=== PATIENT | male | born 1970 | race Caucasian/White ===

== ENCOUNTER 2017-04-08 09:36 | Emergency (ER) | payer OTHER ==
[~2017-04-08] VITALS: Ht 177.8 cm; Wt 72.6 kg
[2017-04-08 09:40] VITALS: BP 131/86; PULSE 54; TEMP 36.9; O2SAT 97; Ht 177.8 cm; Wt 72.6 kg
--- NOTE | 2017-04-08 09:53 | EMERGENCY ROOM VISIT NOTE ---
ED Visit Note First contact with patient: 09:41 CHIEF COMPLAINT: Ankle pain HISTORY OF PRESENT ILLNESS: This 47-year-old male patient presents to the emergency department ambulatory after sustaining an injury to the right ankle and foot with a twisting, inversion motion when he was playing soccer over the weekend. Complains of moderate swelling and pain. The patient complains of pain along the outside of the ankle. The patient does not have pain of the foot. He does complain of pain over the Achilles. The patient rates the pain as mild, soreness and 2/10. There was no audible pop. The patient is able to bear weight on the foot. Constant pain, worse with movement, weight bearing, and the dependent position. No knee pain, the patient is able to move their toes. No numbness or weakness of the foot, no laceration. The patient has had a previous injury to this ankle, sprain and it has been bothering him for a few weeks. The patient has taken nothing for the pain. The patient denies any other injury. REVIEW OF SYSTEMS: A 6 system review of systems was completed with positives and pertinent negatives listed in the HPI. ALLERGIES: No known drug allergies MEDICATIONS: None PMH: None SOCIAL HISTORY: The patient lives locally PHYSICAL EXAM: Vital Signs: Reviewed Nurse's notes, vital signs stable. GENERAL : This is a 47-year-old male, no acute distress, but appears in pain, well- developed, well-nourished. MENTAL STATUS: Alert, oriented to person place and time, and cooperative. MUSCULOSKELETAL: The right ankle is swollen and tender over the lateral malleolus, but the skin is intact and there is no ligamentous instability. There is no fifth metatarsal tenderness. There is no tenderness over the rest of the foot. There is no calf or tibia/fibular tenderness. There is no visual deformity. There is mild tenderness to palpation over the Achilles. There is no deformity or step-off. The foot and toes are warm and well-perfused. Dorsalis pedis pulse 2+. Sensation to pain and light touch is intact. Capillary refill less than 2 seconds. EMERGENCY DEPARTMENT COURSE: I examined the patient. X-rays of the foot and ankle were reviewed by myself and read by radiology and reveal no fracture or dislocation. A gel splint was applied to the ankle under my direction and the position was satisfactory. Neurovascular status was rechecked and intact. The patient was instructed on the use of crutches. The patient was discharged home in good condition. R FOOT MIN 3 VIEWS ROUTINE, R ANKLE MIN 3 VIEWS ROUTINE HISTORY: 47 years-old Male right foot pain acute right foot and ankle pain status post injury COMPARISON: None available TECHNIQUE: 3 views of the right foot and 3 views of the right ankle FINDINGS: FOOT: Mild first metatarsophalangeal osteoarthritis. No acute fracture, dislocation or significant degenerative changes. No stress fracture. ANKLE: No osteochondral defect identified. There is mild circumferential soft tissue swelling about the ankle with small joint effusion. No acute fracture or dislocation. IMPRESSION: 1. Mild circumferential soft tissue swelling about the ankle with small joint effusion. No acute fracture or dislocation of the right foot or ankle. 2. Mild first metatarsophalangeal joint osteoarthritis. Medication Reconciliation: I attest that I have personally reviewed the patient' s current medication list. Blood pressure screening: The patient was found to have normal blood pressure on screening and does not require follow-up Current/Historical Medications No Active Prescriptions or Reported Meds Allergies Coded Allergies: No Known Allergies (Unverified , 04/08/17) Vital Signs Date Time Temp Pulse Resp B/P (MAP) Pulse Ox O2 Delivery O2 Flow Rate FiO2 04/08/17 09:40 36.9 54 18 131/86 97 Room Air Departure Information Impression Primary Impression: Ankle sprain Dispostion Home / Self-Care Condition GOOD Prescriptions No Active Prescriptions or Reported Meds Referrals Martina Chavez M.D. (PCP) Pierre Gomez D.O. Patient Instructions [facility] Sp[facility] Additional Instructions Ice and elevate ankle for swelling and pain. Crutches with weight bearing as tolerated. Wear the splint 7-14 days or until pain subsides. Ibuprofen 600 mg every 6 hrs for pain. Contact orthopedics tomorrow for a follow up appointment. You may need physical therapy. Problem Qualifiers Primary Impression: Ankle sprain Encounter type: initial encounter Laterality: right
--- NOTE | 2017-04-08 10:21 | DIAGNOSTIC IMAGING REPORT ---
R FOOT MIN 3 VIEWS ROUTINE, R ANKLE MIN 3 VIEWS ROUTINE HISTORY: 47 years-old Male right foot pain acute right foot and ankle pain status post injury COMPARISON: None available TECHNIQUE: 3 views of the right foot and 3 views of the right ankle FINDINGS: FOOT: Mild first metatarsophalangeal osteoarthritis. No acute fracture, dislocation or significant degenerative changes. No stress fracture. ANKLE: No osteochondral defect identified. There is mild circumferential soft tissue swelling about the ankle with small joint effusion. No acute fracture or dislocation. IMPRESSION: 1. Mild circumferential soft tissue swelling about the ankle with small joint effusion. No acute fracture or dislocation of the right foot or ankle. 2. Mild first metatarsophalangeal joint osteoarthritis. The above report was generated using voice recognition software. It may contain grammatical, syntax or spelling errors. Electronically signed by: Salas Monteiro M.D. 04/08/2017 10:20 AM Dictated Date/Time: 04/08/2017 10:18 AM
== END 2017-04-08 10:38 | disposition home or self-care (01) ==
LOC: C.EDB 09:37 → C.EDA 10:38
DX: S93.401A Sprain of unspecified ligament of right ankle, initial encounter (principal); X50.9XXA Other and unspecified overexertion or strenuous movements or postures, initial encounter

== ENCOUNTER 2020-11-23 06:01 | Observation (INO) ==
--- NOTE | 2020-11-15 14:21 | PAT Medication Instructions ---
Medication Instructions Date of Service November 15, 2020 Home Medications ciclopirox 1 appln TOP QAM tamsulosin [Flomax] 0.4 mg PO HS tretinoin 1 applic TOP DIRECTED STOP taking 2 weeks before surgery ciclopirox 1 appln TOP QAM tretinoin 1 applic TOP DIRECTED Take evening before surgery tamsulosin [Flomax] 0.4 mg PO HS Other Notes If you have any questions please call us at [phone] or [phone] or [phone] or [phone]
--- NOTE | 2020-11-16 09:01 | Anesthesiology Consultation ---
Date of Service November 16, 2020 Assessment & Plan (1) Encounter for pre-operative examination: - COVID screening: Per assessment on 11/16: Travel screen negative, no known COVID-19 positive contacts or current COVID-19 related symptoms. Surgeon arranged preop COVID testing (pt states he will have done 11/19; [place]) Awaiting results. - S/P Colonoscopy (05/02/19): MAC sedation at [facility] Chart Review Chart Review: Acceptable Risk for Surgery and Patient seen in Pre Admission Testing Teaching & Discussion Pre-Anesthesia Teaching/Discussion Notes: Instructed NPO after midnight before surgery,except medications with 15 cc of water. Medication instructions provided according to the PAT guidelines. History Surgery Operation Date: 11/23/20 11:10 Proposed Procedures p Robotic Laparoscopic Bladder Diverticulectomy - Herminio Sullivan MD s Cystoscopy, Possible Bilateral Ureteral Stent Insertion - Herminio Sullivan MD Height/Weight Height: 5 ft 9.69 in Weight: 67.3 kg Allergies Allergy/AdvReac Type Severity Reaction Status Date / Time No Known Allergies Allergy Verified 11/15/20 11:32 Medications Home Medications Medication Instructions Recorded Confirmed Last Taken tretinoin 1 applic TOP DIRECTED 10/07/20 11/15/20 Unknown Past Medical History Medical History (Updated 11/16/20 @ 09:12 by Yolie Williamson) Bladder diverticulum Hypertension BP went too low on medical therapy > monitors closely at home with normal readings Urinary retention due to benign prostatic hyperplasia Exercise / Class Metabolic Activity II 4-5 Yardwork/Stairs/Walk up hill (one flight of stairs (no chest pain/no sob)) Past Family History Family History Father Colorectal cancer Other No family history of adverse response to anesthesia Past Surgical History Surgical History History of arthroscopy Right knee (30 years ago) History of arthroscopy of right knee History of colonoscopy Colonoscopy (05/02/19): MAC sedation at [facility] History of wisdom tooth extraction Past Anesthesia History No Hx of Anesthesia Complications and No Family Hx of Anesthesia Complications History of PONV No Hx of PONV and No Hx of Motion Sickness Social History Smoking Status: Never smoker Do You Dip or Chew Tobacco: No Hx Alcohol Use: No Hx Substance Use: No substance use type: does not use Review of Systems Patient denies chest pain, shortness of breath, dyspnea on exertion, joint pain, reflux, cough, wheezing, palpitations. Physical Exam Vital Signs VITALS BP 126/73 P 52 (chronic, typically in the 50's and asymptomatic per patient) TEMP 98.3 SP02 100%RA RESP 16 PHYSICAL Full cervical extension range of motion. Full TMJ range of motion. TMD 3 finger breaths Mallampati Score 3 Dentition: missing right lower side Lungs: clear throughout to auscultation Cardiac: regular rate and rhythm, no murmurs noted Spine: normal Carotid arteries: negative bruit Extremities: no edema Testing Laboratory Results 11/16/20 09:28 11/16/20 09:28 Urine Color Yellow 11/16/20 08:24 Urine Appearance Clear (Clear) 11/16/20 08:24 Urine pH 5.5 (4.5-7.5) 11/16/20 08:24 Ur Specific Larue 1.015 (1.000-1.030) 11/16/20 08:24 Urine Protein Negative (Negative) 11/16/20 08:24 Urine Glucose (UA) Negative (Negative) 11/16/20 08:24 Urine Ketones Negative (Negative) 11/16/20 08:24 Urine Nitrite Negative (Negative) 11/16/20 08:24 Ur Leukocyte Esterase Negative (Negative) 11/16/20 08:24 11/16/20 09:28 Urine Culture - Final Urine,Clean Catch No growth - less than 1,000 colonies/mL. 10/05/20 TSH 0.959 (wnl) Electrocardiogram Date: 11/16/20 Sinus bradycardia at 47 bpm. Minimal voltage criteria for LVH, may be normal variant. Chest X-Ray Date: 11/16/20 FINDINGS: PA and lateral chest radiographs are obtained. No prior studies are available for comparison at the time of dictation. The cardiomediastinal silhouette is unremarkable. The lungs and pleural spaces are clear. There is no pneumothorax. The bony thorax appears intact. IMPRESSION: No active disease in the chest.
--- NOTE | 2020-11-16 10:10 | XRay Report ---
TWO VIEW CHEST CLINICAL HISTORY: Preoperative examination. Reported history of hypertension and benign prostatic hyp erplasia. FINDINGS: PA and lateral chest radiographs are obtained. No prior studies are available for compariso n at the time of dictation. The cardiomediastinal silhouette is unremarkable. The lungs and pleural spaces are clear. There is no pneumothorax. The bony thorax appears intact. IMPRESSION: No active disease in the chest. ACT 112: Negative or not required by law. Electronically signed by: Aaron Metcalf M.D. 11/16/2020 10:08 AM
[2020-11-16 10:22] LABS: Appearance Urine Clear (Clear); Bilirubin Urine Negative (Negative); Blood Urine Negative (Negative); Color Urine Yellow; Glucose Urine UA Negative (Negative); Ketones Urine Negative (Negative); Leukocyte Esterase Urine Negative (Negative); Nitrite Urine Negative (Negative); Protein Urine Negative (Negative); Specific Gravity Urine 1.015 (1.000-1.030); Urobilinogen Urine Negative (Negative); pH Urine 5.5 (4.5-7.5)
[2020-11-16 10:24] LABS: Basophils # (auto) 0.03 K/uL (0-0.2); Basophils % (auto) 0.4 %; Eosinophils # (auto) 0.08 K/uL (0-0.5); Hematocrit (blood only) 39.8 % (42-52); Hemoglobin 13.6 g/dL (14.0-18.0); Immature Granulocytes # (auto) 0.01 K/uL (0.00-0.02); Immature Granulocytes % (auto) 0.1 %; Lymphocytes # (auto) 1.69 K/uL (1.2-3.4); Lymphocytes % (auto) 20.3 %; Mean Corpuscular Hemoglobin 29.6 pg (25-34); Mean Corpuscular Hgb Conc 34.2 g/dL (32-36); Mean Corpuscular Volume 86.5 fL (80-100); Mean Platelet Volume 10.1 fL (7.4-10.4); Monocytes # (auto) 0.48 K/uL (0.11-0.59); Monocytes % (auto) 5.8 %; Neutrophils # (auto) 6.02 K/uL (1.4-6.5); Neutrophils % (auto) 72.4 %; Platelet Count 282 K/uL (130-400); RDW Coefficient of Variation 13.1 % (11.5-14.5); RDW Standard Deviation 41.3 fL (36.4-46.3); White Blood Count 8.31 K/uL (4.8-10.8)
[2020-11-16 12:16] LABS: BUN Creatinine Ratio 14.6 (10-20); Calcium 9.4 mg/dl (8.5-10.1); Creatinine Clr Calc Pharmacy 85.8 ml/min; Est GFR (African American) 104.3; Potassium 4.3 mmol/L (3.5-5.1)
--- NOTE | 2020-11-17 06:36 | Electrocardiogram Report ---
Test Reason : Blood Pressure : / mmHG Vent. Rate : 047 BPM Atrial Rate : 047 BPM P-R Int : 142 ms QRS Dur : 090 ms QT Int : 410 ms P-R-T Axes : 067 068 070 degrees QTc Int : 362 ms Sinus bradycardia Minimal voltage criteria for LVH, may be normal variant Borderline ECG No previous ECGs available Confirmed by Magno Lamb ([id number]) on 11/17/2020 6:36:06 AM Referred By: Herminio Sullivan Confirmed By:Magno Lamb
[~2020-11-23 06:01] MED LIST: LR 15ML/HR IV SCH; cefTRIAXone SODIUM 1,000 MG in DEXTROSE 5% 50 ML IV SCH
[2020-11-23] MEDS ORDERED: BUPIVACAINE 0.5 % 5 MG/1 ML MPF 30ML VIAL ONE (07:05)
[2020-11-23] MEDS ORDERED: DEXAMETHASONE SOD INJ 4 MG/ML VIAL ONE (07:06)
[2020-11-23] MEDS ORDERED: ROCURONIUM BROMIDE 10 MG/ML 5 ML VIAL IV ONE (07:06)
[2020-11-23] MEDS ORDERED: NEOSTIGMINE METHYLSULFATE 1 MG/ML 10ML VIAL ONE (07:06)
[2020-11-23] MEDS ORDERED: ONDANSETRON INJ 2 MG/ML 2 ML VIAL ONE (07:06)
[2020-11-23] MEDS ORDERED: GLYCOPYRROLATE 0.2 MG/ML VIAL ONE (07:06)
[2020-11-23] MEDS ORDERED: LIDOCAINE 2% 2 ML VIAL/AMP(20MG/ML) INFIL ONE (07:06)
[2020-11-23] MEDS ORDERED: PROPOFOL IV EMULSION 10 MG/ML 20 ML VIAL IV ONE (07:06)
[2020-11-23] MEDS ORDERED: fentaNYL citrate 100 MCG/2 ML VIAL ONE (07:07)
[2020-11-23] MEDS ORDERED: MIDAZOLAM HCL 1 MG/ML 2ML VIAL ONE (07:07)
--- NOTE | 2020-11-23 07:13 | History & Physical Bridge Note ---
Date of Service November 23, 2020 History & Physical Bridge Note I have examined the patient, reviewed the History & Physical and in the interval since the performance of the History & Physical I have noted the following changes of clinical significance: no changes noted
[2020-11-23] MEDS ORDERED: BELLADONNA/OPIUM SUPP 60 MG SUPP PR ONE (07:51)
[2020-11-23] MEDS ORDERED: ATROPINE SULFATE 0.1 MG/ML 10ML SYR IV PRN (08:06)
[2020-11-23] MEDS ORDERED: fentaNYL citrate 100 MCG/2 ML VIAL IV PRN (08:06)
[2020-11-23] MEDS ORDERED: ePHEDrine sulfate 50 MG/ML AMP IV PRN (08:06)
[2020-11-23] MEDS ORDERED: ONDANSETRON INJ 2 MG/ML 2 ML VIAL IV PRN ×2 (08:06→11:31)
[2020-11-23] MEDS ORDERED: HYDROmorphone INJ 1 MG/ML SYRINGE IV PRN (08:06)
[2020-11-23] MEDS ORDERED: HYDROmorphone INJ 2 MG/ML SYR/VIAL ONE (09:28)
--- NOTE | 2020-11-23 10:15 | Operative Report ---
PG Post Operative Report Pre & Post Diagnosis Operation Date: 11/23/20 07:30 Pre-Op Diagnosis: Bladder Diverticulum, Urinary Retention Post-Op Diagnosis: Bladder Diverticulum, Urinary Retention I identified the patient and participated in the time-out.: Yes Procedure Operation Date: 11/23/20 07:30 Actual Procedures p Robotic Laparoscopic Bladder Diverticulectomy(Not Applicable) - Herminio Sullivan MD s Cystoscopy, Bilateral Ureteral Stent Insertion(Bilateral) - Herminio Sullivan MD Surgeon Avinash Sullivan MD [employer] Architect Elana Muniz Estimated Blood Loss 10 Findings Consistent with Post-Op Diagnosis Specimens bladder diverticulum Description of Procedure The patient was identified in the preoperative holding area, appropriate informed consents were reviewed and completed and the patient was transferred to the operative suite. Upon arrival, appropriate antibiotics and anesthesia were administered and the patient was placed in dorsal lithotomy position and prepped and draped in sterile fashion. To begin the case I passed a 22 Ivorian cystoscope with 30 degree lens. Inspection revealed a healthy-appearing urethra and a modest size prostate with a relatively high bladder neck. Upon entry into the bladder inspection reveals a heavily trabeculated bladder with a notable diverticulum connecting to the midportion of the posterior wall. Ureteral orifices were noted in orthotopic position several centimeters from the opening to the diverticulum. Following my inspection I cannulated the left UO with a 5 Ivorian open-ended catheter and advanced into the kidney without difficulty. I then withdrew the scope and reentered the bladder leaving the catheter in place. I then placed a catheter in wire up the right ureter leaving the catheter in place as well. I again withdrew the scope and reentered the bladder. I then coiled the wire into the diverticulum and placed a wales tip catheter over the wire guiding it into the diverticular space and inflating the balloon with 20 cc of sterile water. This concluded the cystoscopic portion of the case and I withdrew my equipment and turned my attention to the abdominal portion At that time I passed a Veress needle in her umbilicus and inflated the abdomen to 15 mmHg. A supraumbilical incision of 8 mm was made in the port and scope inserted utilizing a Visiport. Inspection revealed a traumatic injury and no evidence of adhesions or other scarring. I subsequently placed additional robotic ports and loan officer assistant ports in standard fashion that would typically be used for robotic prostatectomy. The patient was placed in steep Trendelenburg position and the robot was docked. His sigmoid colon was somewhat adherent to the left aspect of the pelvic sidewall and I carefully dissected this off the pelvic sidewall allowing me to empty the pouch of Jasen and expose the posterior wall of the bladder down to its junction with the prostate. I could easily identify a outpouching of bladder in this area consistent with a diverticulum based on preoperative imaging. Using the previously placed catheter we were able to manipulate the catheter and confirmed that this was in fact the diverticulum. I carefully incised the peritoneum overlying the aspect of the diverticulum and circumferentially began to dissect around the dive rticulum with care to avoid puncture. Fortunately, this was achieved relatively easily and the diverticulum in total was approximately 10 cm across but the junction with the bladder was quite smallapproximately 2 to 3 cm at most. As I neared the neck of the diverticulum, I open the diverticulum through its mucosal wall and inspected. I was able to then complete the dissection removing all mucosa and leaving only the cystotomy created naturally by the diverticulum. At that time I turned my attention to closure. First I collected the diverticulum into a specimen bag and passed into the upper abdomen, second I began to reapproximate the mucosal layer utilizing a 3 OV lock suture in running fashion. I then imbricated the muscle wall over this defect utilizing a 2 oh V- Loc suture. Hemostasis was excellent and the closure was quite tight in appearance. I then inflated the bladder with normal saline to 240 cc and saw no evidence of leak despite distention of the bladder around the area of closure. We then drained the bladder and left the catheter in place. Again hemostasis was excellent but I guided a drain in through the left medial loan officer assistant port and placed it in the area of the pouch of Jasen. The specimen bag was collected and withdrawn through the 12 mm port by withdrawing both the port and the bag simultaneously, there is no need to expand this incision. I closed the fascia in this incision with a 0 Vicryl [id number] suture. A second 0 Vicryl [id number] suture was placed through the midline 8 mm port fascia. Skin incisions were closed with 4-0 Monocryl and Dermabond. Drain was sutured in place with a 3-0 nylon. All incisions were infiltrated with half percent Marcaine. There were no complications. He tolerated the surgery extremely well and was extubated and taken to the PACU in stable condition. Elana Muniz assisted from incision to closure. I attest to the content of the Intraoperative Record and any orders documented therein. Any exceptions are noted below.
[2020-11-23 10:35] LABS: Basophils # (auto) 0.02 K/uL (0-0.2); Basophils % (auto) 0.2 %; Eosinophils # (auto) 0.02 K/uL (0-0.5); Eosinophils % (auto) 0.2 %; Hematocrit (blood only) 39.4 % (42-52); Hemoglobin 13.4 g/dL (14.0-18.0); Immature Granulocytes # (auto) 0.01 K/uL (0.00-0.02); Immature Granulocytes % (auto) 0.1 %; Lymphocytes # (auto) 1.02 K/uL (1.2-3.4); Lymphocytes % (auto) 9.2 %; Mean Corpuscular Hemoglobin 29.8 pg (25-34); Mean Corpuscular Volume 87.6 fL (80-100); Mean Platelet Volume 10.1 fL (7.4-10.4); Monocytes # (auto) 0.14 K/uL (0.11-0.59); Monocytes % (auto) 1.3 %; Neutrophils # (auto) 9.83 K/uL (1.4-6.5); Platelet Count 216 K/uL (130-400); RDW Coefficient of Variation 13.2 % (11.5-14.5); RDW Standard Deviation 42.4 fL (36.4-46.3); White Blood Count 11.04 K/uL (4.8-10.8)
[2020-11-23 10:57] LABS: Calcium 8.8 mg/dl (8.5-10.1); Creatinine Clr Calc Pharmacy 80.3 ml/min; Est GFR (African American) 93.7 ml/min; Est GFR (Non-African American) 80.9 ml/min
[2020-11-23] MEDS ORDERED: oxyCODONE HCL IR 5 MG TAB (IMMEDIATE RELEASE) PO PRN ×2 (11:31)
[2020-11-23] MEDS ORDERED: MoRPHine SULFATE 2 MG/ML CARP IV PRN ×2 (11:31)
[2020-11-23] MEDS ORDERED: ACETAMINOPHEN 325 MG TAB PO PRN (11:31)
[2020-11-23] MEDS: LACTATED RINGER'S 1,000 ML IV SCH ×2 (11:45→20:45)
--- NOTE | 2020-11-23 12:25 | Anesthesiology Progress Note ---
Date of Service November 23, 2020 Anesthesia Post Procedure Vital Signs Vital Signs: Temp Pulse Pulse Pulse Resp BP BP 11/23/20 12:11 36.4 C L 62 16 116/66 11/23/20 11:45 36.6 C 58 L 16 125/76 11/23/20 11:15 36.6 C 62 16 121/75 11/23/20 11:00 66 18 121/65 11/23/20 10:50 60 16 120/78 11/23/20 10:40 36.3 C L 60 16 124/81 11/23/20 10:30 60 17 125/83 11/23/20 10:20 66 16 132/85 11/23/20 10:10 58 L 15 137/90 11/23/20 10:01 36.0 C L 76 15 143/91 H 11/23/20 06:30 36.7 C 60 18 142/87 H Pulse Ox 11/23/20 12:11 97 11/23/20 11:45 100 11/23/20 11:15 100 11/23/20 11:00 99 11/23/20 10:50 100 11/23/20 10:40 98 11/23/20 10:30 97 11/23/20 10:20 100 11/23/20 10:10 100 11/23/20 10:01 100 11/23/20 06:30 100 Transfer of Care Handoff Completed per policy Notes Mental Status: alert / awake / arousable and participated in evaluation Patient Amnestic to Procedure: Yes Nausea / Vomiting: adequately controlled Pain: adequately controlled Airway Patency, RR, SpO2: stable & adequate BP & HR: stable & adequate Hydration State: stable & adequate Anesthetic Complications: no major complications apparent and Pt Satisfied with anesthetic care
[2020-11-23] MEDS: ceFAZolin 2000MG 2,000 MG/15 ML SYR IV SCH (16:28)
[2020-11-23] MEDS: HEPARIN SOD 5,000 UNIT/0.5 ML VIAL SQ SCH (21:33)
[2020-11-24] MEDS: ceFAZolin 2000MG 2,000 MG/15 ML SYR IV SCH (01:11)
[2020-11-24] MEDS: LACTATED RINGER'S 1,000 ML IV SCH (06:03)
[2020-11-24 06:28] LABS: Basophils # (auto) 0.01 K/uL (0-0.2); Basophils % (auto) 0.1 %; Eosinophils # (auto) 0.02 K/uL (0-0.5); Eosinophils % (auto) 0.2 %; Hematocrit (blood only) 36.8 % (42-52); Hemoglobin 12.6 g/dL (14.0-18.0); Immature Granulocytes # (auto) 0.03 K/uL (0.00-0.02); Immature Granulocytes % (auto) 0.3 %; Lymphocytes # (auto) 1.75 K/uL (1.2-3.4); Lymphocytes % (auto) 15.6 %; Mean Corpuscular Hemoglobin 29.3 pg (25-34); Mean Corpuscular Hgb Conc 34.2 g/dL (32-36); Mean Corpuscular Volume 85.6 fL (80-100); Mean Platelet Volume 10.2 fL (7.4-10.4); Monocytes # (auto) 0.93 K/uL (0.11-0.59); Monocytes % (auto) 8.3 %; Neutrophils # (auto) 8.49 K/uL (1.4-6.5); Neutrophils % (auto) 75.5 %; Platelet Count 221 K/uL (130-400); RDW Coefficient of Variation 13.4 % (11.5-14.5); RDW Standard Deviation 41.7 fL (36.4-46.3); White Blood Count 11.23 K/uL (4.8-10.8)
[2020-11-24 07:06] LABS: BUN Creatinine Ratio 13.9 (10-20); Calcium 9.1 mg/dl (8.5-10.1); Creatinine Clr Calc Pharmacy 87.8 ml/min; Est GFR (African American) 104.3 ml/min; Potassium 3.9 mmol/L (3.5-5.1)
--- NOTE | 2020-11-24 08:35 | Urology Progress Note ---
Date of Service November 24, 2020 Assessment & Plan (1) Bladder diverticulum: pod #1 s/p robotic bladder diverticulectomy - doing great - adriano out - advance diet - home with carbone - cystogram and VT next week Admission and Anticipated Discharge Date Admission Date: November 23, 2020 Subjective no issues overnight tolerating the catheter well limited ADRIANO output no pain or pain meds oob Physical Exam Physical Exam: incisions appropriate urine clear adriano serosang Results & Data ([facility]) Vital Signs (Past 12 Hours) Vital Signs Temp Pulse Resp BP Pulse Ox 11/24/20 07:38 36.8 C 60 18 143/84 H 98 11/23/20 22:08 36.8 C 58 L 16 135/67 98 PG Care Time/CCT Total # of Minutes Spent Total Time Spent with Patient: Total time spent is greater than 50% in coordination of care (as documented) at patient's floor/unit and/or counseling patient: Coding Level of Care Code 28320 Subseq Hosp Care Lvl 2 Diagnoses Bladder diverticulum N32.3
[2020-11-24] MEDS: HEPARIN SOD 5,000 UNIT/0.5 ML VIAL SQ SCH (09:42)
--- NOTE | 2020-11-24 12:26 | Discharge Summary ---
Date of Service November 24, 2020 Admission HPI Per Admitting Provider See H&P Admission Exam Per Admitting Provider See H&P Principal Diagnosis Bladder diverticulum, urinary retention Discharge Exam incisions appropriate urine clear adriano serosang Discharge Data Allergies Allergy/AdvReac Type Severity Reaction Status Date / Time No Known Allergies Allergy Verified 11/23/20 06:17 Procedures Performed Operation Date: 11/23/20 07:30 Actual Procedures p Robotic Laparoscopic Bladder Diverticulectomy(Not Applicable) - Herminio Sullivan MD s Cystoscopy, Bilateral Ureteral Stent Insertion(Bilateral) - Herminio Sullivan MD Hospital Course (1) Bladder diverticulum: Patient status post robotic bladder diverticulectomy 11/23/[address] Sullivan. No complications post procedure. He was seen POD#1, feeling well, clinically progressing. Vital signs and post-op labs appropriate and as expected. Pain controlled, tolerating diet, ambulating without dizziness. ADRIANO drain removed POD#1. Discharged home in stable condition POD#1, home with carbone catheter. Plan for cystogram 11/30 with voiding trial in office after cystogram. Postop follow-up with Dr. Sullivan scheduled 12/08/20. Total Time Total Time Spent Total Time Spent (In Minutes): 10 Discharge Plan Discharge Items Patient Disposition: Home - Self-Care Reason For Visit: Bladder Diverticulum, Urinary Retention Discharge Diagnosis: Bladder diverticulum, urinary retention Activity: Per Instructions section Lifting: No more than 25 pounds Bathing Comment: No tub baths/soaking, okay to shower tomorrow. Sexual Activity: Wait until after follow-up appointment Exercise/Sports: Wait until after follow-up appointment Driving/Machine Use: Do not drive while taking narcotic pain medication Non-emergency contact: Surgeon and Urologist Call non-emergency contact if: your pain is not controlled, your temperature is above 101, your wound has increased redness, your wound has increased drainage and your wound pain has increased Follow-up/Referrals: Herminio Sullivan MD [Physician] - 12/08/20 3:00 pm Sreedhar Grey DO [Primary Care Provider] - 11/29/20 11:30 am ( ) [facility],Nurse [FAKE FOR SCHEDULES] - 11/30/20 9:30 am Diet: Regular Addtl Attending Provider Instructions: Please take all medications as prescribed and keep all follow-ups as scheduled. Please call our office at [phone] with any questions, concerns or need to reschedule appointments for any reason. We are happy to assist you We have sent an antibiotic to your pharmacy of choice. Please start your antibiotic therapy as directed. You are scheduled for a cystogram on 11/30/20 at 7:45 AM. Please be at the hospital at 7:15 am. Report to the main entrance. Our office will mail you more information regarding this appointment. Activity: We recommend having someone with you for the first few days after surgery to help care for you. For the first 2 weeks after surgery, we would like you to get up and walk around your house. However, we recommend limit physical activity that would increase your heart rate. This will allow your body to rest and heal. Take naps if you feel tired. Don't lift anything heavier than 10 pounds, mow the law or ride a bicycle until your follow-up appointment. Please avoid long car rides. Home Care: Unless directed otherwise, drink 6 to 8 glasses of water a day (enough to keep your urine light colored). This will also help keep a healthy flow of urine. We recommend using a stool softener for the first two weeks to avoid constipation. Carbone Catheter or Suprapubic Catheter care: Keep the catheter well secured with either a leg back or leg strap with large bag. Empty your bag when it's about half full. You may notice some blood in the bag. This is normal after surgery and while the catheter is in place. Use mild soap (such as Dove or Dial) and water to wash the catheter and the head of your penis daily, or more frequently if needed. Return to your normal diet, we encourage good protein intake to promote healing. You may shower as normal. Please avoid tub baths or soaking until catheter removed and incisions well healed. Wearing sweat pants while you have the catheter is recommended, they will be more comfortable. Follow-up Your follow up appointments for having your catheter removed, and follow up with your physician should already be scheduled. If you have any questions regarding this, please contact our office. Your final pathology report will be discussed at your physician follow-up appointment. Call [facility] at [phone] right away if you have any of the following: Chest pain or trouble breathing (call 911 or go to the hospital) Fever of 101F or higher, uncontrolled vomiting Heavy bleeding, clots, or bright red blood from the catheter Catheter that falls out or stops draining Foul-smelling discharge from your catheter Redness, swelling, warmth, or increased pain at your incision site Drainage, pus, or bleeding from your incision Pending Studies at Discharge: Yes Studies:: Pathology Stand-Alone Forms: My [facility], Opioid Pain Management, Smoking Cessation Medications and DC Order Prescriptions: New oxycodone-acetaminophen [Percocet] 5-325 mg tablet 1 tab PO TID PRN (Reason: pain) Qty: 14 RF: 0 docusate sodium [Colace] 100 mg capsule 100 mg PO BID Qty: 60 RF: 0 nitrofurantoin monohyd/m-cryst [Macrobid] 100 mg capsule 100 mg PO BID 10 Days Qty: 20 RF: 0 Continued tretinoin 0.025 % cream 1 applic TOP DIRECTED RF: 0 Discharge Orders: Discharge Order (Routine); Ordered 11/24/20 Ordered By: Joy Jacobsen/Other Patient Handouts: Discharge Instructions Caring for ... Admission Data Admit Date/Time: 11/23/20 09:56 Attending Provider: Herminio Sullivan Admit Provider: Herminio Sullivan Primary Care Provider: Sreedhar Grey Other Interventions: Discharge Summary Assessment (RN) Last Done: 11/24/20 10:32 Coding Level of Care Code D/C Day Management <30 mins Diagnoses Bladder diverticulum N32.3
== END 2020-11-24 13:11 | disposition home or self-care (01) | DRG 655 ==
LOC: ASU 06:01 → INTOOBSV 09:56 → 3N 09:56